=== PATIENT | male | born 1975 | race Caucasian/White ===

== ENCOUNTER 2018-02-12 07:07 | Day surgery (SDC) | payer BC ==
[~2018-02-12] VITALS: Ht 190.5 cm; Wt 90.2 kg
[2018-02-12 07:23] VITALS: BP 117/77; PULSE 62; TEMP 97.9
[2018-02-12] MEDS ORDERED: PROTONIX 40MG T40 MG PO (07:27)
[2018-02-12] MEDS ORDERED: MOBIC15 MG PO (07:27)
[2018-02-12 09:00] VITALS: BP 116/98; PULSE 57; TEMP 98.7
[2018-02-12 09:15] VITALS: BP 109/76; PULSE 56
[2018-02-12 09:30] VITALS: BP 115/70; PULSE 45
== END 2018-02-12 09:45 | disposition home or self-care (01) ==
LOC: SDCO 07:07
DX: K21.0 Gastro-esophageal reflux disease with esophagitis (principal); R07.89 Other chest pain; Z86.010 Personal history of colon polyps
CPT/HCPCS: OP; J2250; J3010; J7030

== ENCOUNTER → 2018-06-23 | Outpatient (CLI) | payer BC ==
[~2018-06-23] MED LIST: MOBIC15 MG PO; PROTONIX 40MG T40 MG PO
== END ==
LOC: COL.RAD 10:05
DX: R10.11 Right upper quadrant pain (principal); G89.29 Other chronic pain

== ENCOUNTER → 2018-07-09 | Outpatient (CLI) | payer BC | LOC: COL.RAD 05:54 | DX: K21.9 Gastro-esophageal reflux disease without esophagitis (principal); R10.11 Right upper quadrant pain; Z86.010 Personal history of colon polyps | CPT/HCPCS: A9537 ==

== ENCOUNTER 2018-08-13 06:58 | Day surgery (SDC) | payer BC ==
[~2018-08-13] VITALS: Ht 190.5 cm; Wt 86.6 kg
[2018-08-13 07:56] VITALS: BP 124/74; PULSE 59; TEMP 97.7
[2018-08-13 09:36] VITALS: BP 102/77; PULSE 66; TEMP 97.8
[2018-08-13 09:51] VITALS: BP 120/80; PULSE 61
[2018-08-13 10:06] VITALS: BP 114/75; PULSE 54
[2018-08-13 10:21] VITALS: BP 105/60; PULSE 57
== END 2018-08-13 10:47 | disposition home or self-care (01) ==
LOC: SDCO 06:58
DX: Z12.11 Encounter for screening for malignant neoplasm of colon (principal); D12.2 Benign neoplasm of ascending colon; R93.3 Abnormal findings on diagnostic imaging of other parts of digestive tract; K21.9 Gastro-esophageal reflux disease without esophagitis; Z86.010 Personal history of colon polyps
CPT/HCPCS: J2250; J3010; J7030